=== PATIENT | male | born 1990 | race Caucasian/White ===

== ENCOUNTER 2016-12-08 07:53 | Emergency (ER) | payer MEDICAID ==
[2016-12-08] MEDS ORDERED: Lactated Ringers 1,000 ML IV ONE (08:02)
[2016-12-08] MEDS ORDERED: LORazepam 2 MG/ML MDV IVPUSH ONE (08:07)
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
[2016-12-08] MEDS ORDERED: Sodium Chloride 0.9% 10 ML Syringe FLUSH PRN (09:27)
[2016-12-08 11:25] VITALS: BP 143/96
== END 2016-12-08 10:32 ==
LOC: FB.ED 07:53
DX: F19.90 Other psychoactive substance use, unspecified, uncomplicated (principal); G47.33 Obstructive sleep apnea (adult) (pediatric); E66.09 Other obesity due to excess calories; Z68.41 Body mass index [BMI] 40.0-44.9, adult; I10 Essential (primary) hypertension; F17.210 Nicotine dependence, cigarettes, uncomplicated; Z90.49 Acquired absence of other specified parts of digestive tract; Z79.899 Other long term (current) drug therapy; Z88.0 Allergy status to penicillin; Z88.6 Allergy status to analgesic agent
CPT/HCPCS: 36415; 51701; 80053; 80305; 81001; 85027; 96360; 99285; G0480; J7050; J7120; 99284

== ENCOUNTER 2018-01-04 07:50 | Day surgery (SDC) | payer MEDICAID ==
[2018-01-04] MEDS ORDERED: Sodium Chloride 0.9% 10 ML Syringe FLUSH PRN (08:15)
[2018-01-04] MEDS ORDERED: Lactated Ringers 1,000 ML IV SCH (08:15)
[2018-01-04] MEDS ORDERED: Propofol 200 MG/20 ML SDV IV ONE (10:00)
[2018-01-04] MEDS ORDERED: Ketamine 500 mg/10 ML MDV IV ONE (10:00)
--- NOTE | 2018-01-04 10:17 | PCM.OPNOTE ---
- General Post-Op/Procedure Note Date of Surgery/Procedure: 01/04/18 Operative Procedure(s): egd with bx Findings: gastritis esophagitis Pre Op Diagnosis: dysphagia. gerd Post-Op Diagnosis: gastritis. esophagitis Anesthesia Technique: MAC Primary Surgeon: Mirza Ayon Anesthesia Provider: Ngozi Diaz Pathology: stomach and esophagus Complications: None Condition: Good Free Text/Narrative:: see dictation
[2018-01-04 10:57] VITALS: BP 143/82
--- NOTE | 2018-01-04 11:32 | OR ---
DATE OF OPERATION: 01/04/2018 SURGEON: Mirza Ayon MD PROCEDURES PERFORMED: EGD with cold forceps biopsy. PREOPERATIVE DIAGNOSES: 1. Dysphagia. 2. Gastroesophageal reflux disease. POSTOPERATIVE DIAGNOSES: 1. Gastritis. 2. Esophagitis. INDICATIONS FOR PROCEDURE: This is a 27-year-old white male who is referred with a history of regurgitation, difficulty swallowing, and reflux. He was offered and accepted an EGD. DESCRIPTION OF PROCEDURE: After an excellent IV sedation was administered, the bite block was inserted. The flexible endoscope was passed without difficulty down the patient's esophagus and into the stomach. The stomach was insufflated, and the scope was advanced through the pylorus, to the second portion of the duodenum, and slowly withdrawn. The following findings were noted. Duodenum unremarkable. Stomach demonstrated some linear erosions. Biopsies were taken. GE junction measured approximately 40 cm. Distal esophagus demonstrated some erythema in the distal 2 to 3 cm, which was biopsied. The remainder of the esophageal exam was unremarkable. Stomach was deflated. The scope was removed. The patient tolerated the procedure well and was taken to recovery room in a good condition. /[id number] /LYRICL
== END 2018-01-04 11:08 | disposition home or self-care (01) ==
LOC: FB.SDS 07:50
PROVIDERS: ATTEND Surgery
DX: K29.50 Unspecified chronic gastritis without bleeding (principal); K21.0 Gastro-esophageal reflux disease with esophagitis; F17.210 Nicotine dependence, cigarettes, uncomplicated; Z79.899 Other long term (current) drug therapy; Z88.0 Allergy status to penicillin
CPT/HCPCS: 43239; J2704; J7120; 88305; 88313; 88342

== ENCOUNTER 2021-04-04 09:03 | Emergency (ER) | payer MEDICAID ==
--- NOTE | 2021-04-04 09:12 | EDM.PDOC ---
ED HPI GENERAL MEDICAL PROBLEM - General Stated Complaint: BACK PAIN Time Seen by Provider: 04/04/21 09:10 Source of Information: Reports: Patient History Limitations: Reports: No Limitations - History of Present Illness INITIAL COMMENTS - FREE TEXT/NARRATIVE: Patient presented to the ED because of low back pain which started 3 days ago. He was trying to move a 300 lb object at work and since then he c/o low back pain,08/05 -03/07 when it's worse. The pain is worse with movements, he took flexeril 10 mg without any relief. Lower Back Pain Score (Numeric/FACES): 4 - Related Data Allergies Allergy/AdvReac Type Severity Reaction Status Date / Time Penicillins Allergy Unknown Hives Verified 07/22/15 22:47 acetaminophen Allergy Hives Verified 01/05/16 13:30 Home Meds: Home Meds Esomeprazole [NexIUM] 40 mg PO DAILY 01/03/18 [History] Lisinopril 20 mg PO DAILY 01/03/18 [History] Propranolol [Inderal] 20 mg PO BID 01/03/18 [History] Sertraline [Zoloft] 150 mg PO DAILY 01/03/18 [History] Cyclobenzaprine [Flexeril] 10 mg PO TID PRN #15 tab 04/04/21 [Rx] Ibuprofen 800 mg PO TID PRN #30 tablet 04/04/21 [Rx] traMADol [Ultram] 100 mg PO Q8H PRN #15 tab 04/04/21 [Rx] Past Medical History - Past Health History Medical/Surgical History: Denies Medical/Surgical History HEENT History: Reports: Impaired Vision Cardiovascular History: Reports: Hypertension Respiratory History: Reports: None Gastrointestinal History: Reports: GERD, Hiatal Hernia Genitourinary History: Reports: None 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 AGE 21 Endocrine/Metabolic History: Reports: Obesity/BMI 30+ Hematologic History: Reports: None Oncologic (Cancer) History: Reports: None Dermatologic History: Reports: None - Infectious Disease History Infectious Disease History: Reports: None - Past Surgical History GI Surgical History: Reports: Appendectomy, Colonoscopy, EGD Social & Family History - Family History Family Medical History: No Pertinent Family History - Caffeine Use Caffeine Use: Reports: Soda ED ROS GENERAL - Review of Systems Review Of Systems: See Below Constitutional: Reports: No Symptoms HEENT: Reports: No Symptoms Respiratory: Reports: No Symptoms Cardiovascular: Reports: Dyspnea on Exertion Endocrine: Reports: No Symptoms GI/Abdominal: Reports: No Symptoms : Reports: No Symptoms Musculoskeletal: Reports: Back Pain, Muscle Pain, Muscle Stiffness Skin: Reports: No Symptoms Neurological: Reports: No Symptoms Psychiatric: Reports: No Symptoms ED EXAM,LOWER BACK PAIN/INJURY - Physical Exam Exam: See Below Exam Limited By: No Limitations General Appearance: Alert, No Apparent Distress Ears: Normal External Exam, Normal Canal Nose: Normal Inspection, Normal Mucosa, No Blood Throat/Mouth: Normal Inspection, Normal Lips, Normal Teeth, Normal Gums, Normal Oropharynx, Normal Voice Head: Atraumatic, Normocephalic Neck: Normal Inspection, Supple, Non-Tender, Full Range of Motion Respiratory/Chest: No Respiratory Distress, Lungs Clear, Normal Breath Sounds, No Accessory Muscle Use, Chest Non-Tender Cardiovascular: Normal Peripheral Pulses, Regular Rate, Rhythm, No Edema, No Gallop, No JVD, No Murmur, No Rub Back Exam: Normal Inspection, Full Range of Motion Course - Vital Signs Text/Narrative:: Toradol 60 mg IM x1 Tramadol 100 mg PO x1 Flexeril 10 mg PO x1 Last Recorded V/S: Last Vital Signs Temp 36.3 C 04/04/21 09:27 Pulse 98 04/04/21 09:27 Resp 18 04/04/21 09:27 BP 136/95 H 04/04/21 09:27 Pulse Ox 99 04/04/21 09:27 - Orders/Labs/Meds Meds: Medications Discontinued Medications Generic Name Dose Route Start Last Admin Trade Name Sunnyq PRN Reason Stop Dose Admin Cyclobenzaprine HCl 10 mg 04/04/21 09:07 04/04/21 09:21 Cyclobenzaprine 10 Mg Tab PO 04/04/21 09:08 10 mg NOW STA Administration Ketorolac Tromethamine 60 mg 04/04/21 09:07 04/04/21 09:20 Ketorolac 30 Mg/Ml Sdv IM 04/04/21 09:08 60 mg NOW STA Administration Tramadol HCl 100 mg 04/04/21 09:07 04/04/21 09:21 Tramadol 50 Mg Tab PO 04/04/21 09:08 100 mg NOW STA Administration Departure - Departure Time of Disposition: 09:45 Disposition: Home, Self-Care 01 Condition: Good Clinical Impression: Low back pain, Lumbosacral strain - Discharge Information Prescriptions: Cyclobenzaprine [Flexeril] 10 mg PO TID PRN #15 tab PRN Reason: Spasms Ibuprofen 800 mg PO TID PRN #30 tablet PRN Reason: Pain traMADol [Ultram] 100 mg PO Q8H PRN #15 tab PRN Reason: Pain Instructions: Acute Back Pain, Adult, Lumbosacral Strain Referrals: Oswald Alcantara MD [Primary Care Provider] - Forms: ED Department Discharge Additional Instructions: Please read discharge instructions on low back pain Apply ice r heat whichever you prefer Take all the following medications for better pain relief: Tramadol 100 mg with Ibuprofen 800 mg and flexeril 10 mg 3 times daily for pain and spasm Follow up as needed
[2021-04-04] MEDS: Ketorolac 30 MG/ML SDV IM STA (09:20)
[2021-04-04] MEDS: Cyclobenzaprine 10 MG Tab PO STA (09:21)
[2021-04-04] MEDS: traMADol 50 MG Tab PO STA (09:21)
[2021-04-04 09:30] VITALS: BP 136/95; PULSE 98
== END 2021-04-04 09:45 | disposition home or self-care (01) ==
LOC: FB.ED 09:03
DX: S39.012A Strain of muscle, fascia and tendon of lower back, initial encounter (principal); I10 Essential (primary) hypertension; K21.9 Gastro-esophageal reflux disease without esophagitis; E66.9 Obesity, unspecified; Z68.37 Body mass index [BMI] 37.0-37.9, adult; Z88.0 Allergy status to penicillin; Z88.6 Allergy status to analgesic agent; Z79.899 Other long term (current) drug therapy; X50.0XXA Overexertion from strenuous movement or load, initial encounter; Y92.89 Other specified places as the place of occurrence of the external cause; Y99.0 Civilian activity done for income or pay
CPT/HCPCS: 96372; 99283; A9270; J1885